=== PATIENT | female | born 1995 | race Caucasian/White ===

== ENCOUNTER 2020-06-13 04:37 | Emergency (ER) | payer OTHER ==
[~2020-06-13] VITALS: Ht 180.3 cm; Wt 97.5 kg
[~2020-06-13 04:37] MED LIST: BENADRYL25 MG; DEPO-PROVE150 MG/11 IM; IBUPROFEN 600600 M1; KEFLEX500 MG PO; MOBIC15 MG PO; PREDNISONE 20 M20 MG PO; VISINE-A EYE AL15 ML OP
[2020-06-13 05:13] LABS: HEMATOCRIT 38.4 % (37.0-47.0); MCH 31.1 pg (26.0-34.0); MCHC 33.9 g/dL (28.0-37.0); MCV 91.7 fL (80.0-100.0); RBC 4.19 mil/uL (4.20-5.00); RDW 12.9 % (10.5-14.5); WBC 8.9 thou/uL (4.0-11.0)
[2020-06-13 05:21] LABS: CALCIUM 9.5 mg/dL (8.5-10.1); CREATININE 0.9 mg/dL (0.6-1.0); POTASSIUM 3.6 mmol/L (3.5-5.1)
[2020-06-13 05:27] LABS: TOTAL BILIRUBIN 0.4 mg/dL (0.2-1.0); TOTAL PROTEIN 7.6 g/dL (6.4-8.2)
[2020-06-13 06:03] VITALS: BP 116/63
--- NOTE | 2020-06-13 09:14 | EKG ---
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 06/13/20 0914 [id number] Celestine Whatley MD, FACC /EPI
== END 2020-06-13 06:06 | disposition home or self-care (01) ==
LOC: ER 04:37
PROVIDERS: Student in an Organized Health Care Education/Training Program
DX: R07.89 Other chest pain (principal); R51.9 Headache, unspecified